=== PATIENT | male | born 1985 | race Caucasian/White ===

== ENCOUNTER 2019-05-05 17:15 | Emergency (ER) | payer OTHER ==
[2019-05-05 17:47] VITALS: BP 139/76
--- NOTE | 2019-05-05 17:51 | UC ---
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 right side facial "flushing feeling " per patient. Denies any sob, nausea. Pleasant 34 yo gentleman presents c/o intermittent L upper ext weakness and discomfort, also notes periodic LLE similar sx from calf downwards. Some facial flushing. Sx intermittent x approx 3 weeks. No hx similar. Has stopped energy drinks, but to no avail. Unable to associate alleviating / causal factors. No recent injury known. Works hard at work, also works out. H /a last night, not wol, but doesn't usually get h/a's. No vis / aud issues. No neck pain. + hx back pain, but not associated with current sx. No GI upset or diarrhea. No issues nor incontinence. No rash. Reports strength currently is ok. Last sx started approx 16:30 today, gone now, but he is very concerned and wants to be checked. [place] out of town, [place]. No cp / palpitations / sob. - History of Current Complaint Chief Complaint: UCGeneralIllness Stated Complaint: LT ARM COMPLAINT, RT SIDE FACIAL COMPLAINT Time Seen by Provider: 05/05/19 17:43 Hx Obtained From: Patient Pain Intensity: 0 - Allergy/Home Medications Allergies/Adverse Reactions: Allergies Allergy/AdvReac Type Severity Reaction Status Date / Time Penicillins Allergy Anaphylatic Verified 05/05/19 17:47 Shock Home Medications: Home Medications NK [No Home Medications Reported] 05/05/19 [History Confirmed 05/05/19] PMH/Surg Hx/FS Hx/Imm Hx Previously Healthy: Yes - Surgical History Surgical History: None - Family History Known Family History: Positive: Other - no stroke / cardiac mom - ca - Social History Alcohol Use: Occasionally Substance Use Type: Marijuana Smoking Status (MU): Never Smoked Tobacco Review of Systems All Other Systems Reviewed And Are Negative: Yes Constitutional: Positive: Other - see hpi Skin: Positive: Negative Eyes: Positive: Negative ENT: Positive: Negative Respiratory: Positive: Negative Cardiovascular: Positive: Negative Gastrointestinal: Positive: Negative Genitourinary: Positive: Negative Motor: Positive: Other - see hpi Neurovascular: Positive: Other Musculoskeletal: Positive: Other: - see hpi Neurological: Positive: Other - see hpi Psychological: Positive: Negative Is Patient Immunocompromised?: No Physical Exam Triage Information Reviewed: Yes Appearance: Well-Appearing, Well-Nourished Vital Signs: Initial Vital Signs Temp 99.8 F 05/05/19 17:44 Pulse 70 05/05/19 17:44 Resp 16 05/05/19 17:44 BP 139/76 05/05/19 17:44 Pulse Ox 99 05/05/19 17:44 Vital Signs Reviewed: Yes Eye Exam: Normal - fundi grossly benign ENT Exam: Normal Neck exam: Normal Neck: Positive: Supple, Nontender, No Lymphadenopathy Respiratory Exam: Normal Respiratory: Positive: Chest non-tender, Lungs clear, Normal breath sounds, No respiratory distress, No accessory muscle use Cardiovascular Exam: Normal Cardiovascular: Positive: RRR, No Murmur, Pulses Normal, Brisk Capillary Refill Abdominal Exam: Normal Abdomen Description: Positive: Nontender Musculoskeletal Exam: Normal Musculoskeletal: Positive: Strength Intact, ROM Intact Neurological Exam: Normal - balance good, no tremor, cn's intact Neurological: Positive: Alert, Muscle Tone Normal Psychological Exam: Normal Skin Exam: Normal - no visible or reported rash Course/Dx - Course Course Of Treatment: EKG (no old for comp) SR at 62 bpm. ? LVH No hx dm. Recommend further evaluation / tx in ED. EMS offered, declines. Questions as posed answered to the best of my ability. D/w Vaishali Fernandes NP - Diagnoses Provider Diagnosis: Weakness Discharge ED - Sign-Out/Discharge Documenting (check all that apply): Patient Departure All imaging exams completed and their final reports reviewed: No Studies - Discharge Plan Condition: Guarded Disposition: HOME-RECOMMEND TO ED Patient Education Materials: Weakness (ED) Referrals: No Primary Care Phys,NOPCP [Primary Care Provider] - Additional Instructions: Please go to the Emergency Department. Stop and call 911 if problems en route. - Billing Disposition and Condition Condition: GUARDED Disposition: Home-Recommend to ED
== END 2019-05-05 18:21 | disposition home health service (06) ==
LOC: UCCORT 17:15
DX: R53.1 Weakness (principal); Z88.0 Allergy status to penicillin
CPT/HCPCS: 93005; 99202; G0463